=== PATIENT | female | born 1980 | race Caucasian/White ===

== ENCOUNTER 2024-03-08 00:08 | Emergency (ER) | payer OTHER, SELFPAY ==
[2024-03-08 00:11] VITALS: BP 215/103
--- NOTE | 2024-03-08 00:21 | ED.GENMED ---
History of Present Illness
<Yenifer Jiménez COMPLIANCE REVIEW SPECIALIST - Last Filed: 03/12/24 15:58>
General
Chief Complaint: Abdominal Pain
Source: patient
Exam Limitations: none
Time Seen by Provider: 03/08/24 00:19
Nursing documentation reviewed up to this point in time: agreed with
History of Present Illness
History of Present Illness:
44-year-old female with history of COPD, smokes 2 packs a day, CKD, elevated liver enzymes with hepatomegaly presents for 1 month of left upper quadrant abdominal pain which has gotten worse in the past few days, she states she was crying at home
earlier tonight due to the pain. She states the pain is worse with eating or drinking. She states she has also had nonbloody diarrhea for the past week and she has been taking Imodium. Denies fever or chills. Denies UTI symptoms.
Past History
<Yenifer Jiménez, COMPLIANCE REVIEW SPECIALIST - Last Filed: 03/12/24 15:58>
Past History
ED Past Medical History: Asthma, COPD, GERD and Renal failure
ED Past Surgical History: Cholecystectomy, and Tonsilectomy
Social History
Tobacco: Smoker
Alcohol: Occasional
Drug: None
Personal: Single
Living: with family
Employment: Employed
Family History
Family History: Other (Noncontributory)
Review of Systems
<Yenifer Jiménez, COMPLIANCE REVIEW SPECIALIST - Last Filed: 03/12/24 15:58>
Review of Systems
Allergies reviewed?: Yes
All Other Systems: ROS reviewed and negative except as documented in HPI and ROS
Constitutional: Denies fever
Respiratory: Denies trouble breathing
Cardiac: Denies chest pain
ABD/GI: Reports abdominal pain, nausea and diarrhea; Denies bloody stools or black stools
: Denies dysuria, frequency or difficulty voiding
Musculoskeletal: Reports no symptoms
Skin: Reports no symptoms
Neurological: Reports no symptoms
Phy Exam
<Yenifer Jiménez, COMPLIANCE REVIEW SPECIALIST - Last Filed: 03/12/24 15:58>
Physical Exam
Physical Exam:
GENERAL: Morbidly obese . no acute distress. A&Ox3.
CONSTITUTIONAL: Afebrile.
EYES: PERRL, conjunctivae normal
ENMT: moist mucus membranes, Pharynx nl
RESPIRATORY: Regular respirations, nonlabored, lungs clear.
CARDIOVASCULAR: Regular rate and rhythm, no murmurs, no rubs.
GI: Soft, nontender, normal BS
MUSCULOSKELETAL: Moves with ease. Well perfused.
SKIN: Warm, dry, pink
PSYCH: Normal mood and affect. Well kept, interactive and appropriate
NEUROLOGIC: Awake, alert and oriented. No focal neurological deficits
Course
<Yenifer Jiménez, COMPLIANCE REVIEW SPECIALIST - Last Filed: 03/12/24 15:58>
Orders/Labs/Results
Orders:
Orders
03/08/24 00:17
EKG [Electrocardiogram (*1)] Urgent
Reason for Study: Abdominal Pain
EKG- Treatment ONCE
03/08/24 00:20
CT Abd/pelvis Wo Iv Cont Urgent
Comment: modified due to infiltrated iv per ordering COMPLIANCE REVIEW SPECIALIST
Reason For Exam: LUQ pain
Test Result ONCE
03/08/24 00:33
Doxycycline [Vibramycin] 100 mg PO NOW STA
03/08/24 00:58
Complete Blood Count/With Diff Urgent
Manual Differential Urgent
03/08/24 01:40
Basic Metabolic Panel Urgent
Comment: NO K
HCG, Serum Qualitative Screen Urgent
03/08/24 03:30
Comprehensive Metabolic Panel Routine
Direct Bilirubin Routine
Lipase Routine
03/08/24 03:36
Oxycodone/Acetaminophen [Percocet 5/325] 2 tablet .ROUTE .STK-MED ONE
Abnormal Lab Results
03/08/24 03/08/24 03/08/24
00:58 01:40 03:30
WBC 12.3 H 10^3/uL
(4.8-10.8)
Segmented Neutrophils 37 L %
(42-75)
Band Neutrophils 4 H %
(0-3)
BUN 22 H mg/dl 20 H mg/dl
(7-17) (7-17)
03/08/24 00:58
03/08/24 03:30
Vital Signs
Initial and Last Documented VS:
Initial Vital Signs
Temp Pulse Resp BP Pulse Ox
97.8 F 67 20 215/103 100
03/08/24 00:11 03/08/24 00:11 03/08/24 00:11 03/08/24 00:11 03/08/24 00:11
Last Documented Vital Signs
Temp Pulse Resp BP Pulse Ox
98.3 F 65 24 173/60 93
03/08/24 04:23 03/08/24 04:23 03/08/24 04:23 03/08/24 04:23 03/08/24 04:23
<Edvin Raygoza, DO - Last Filed: 03/08/24 04:39>
Orders/Labs/Results
Orders:
Orders
03/08/24 00:17
EKG [Electrocardiogram (*1)] Urgent
Reason for Study: Abdominal Pain
EKG- Treatment ONCE
03/08/24 00:20
CT Abd/pelvis Wo Iv Cont Urgent
Comment: modified due to infiltrated iv per ordering COMPLIANCE REVIEW SPECIALIST
Reason For Exam: LUQ pain
Test Result ONCE
03/08/24 00:33
Doxycycline [Vibramycin] 100 mg PO NOW STA
03/08/24 00:58
Complete Blood Count/With Diff Urgent
Manual Differential Urgent
03/08/24 01:40
Basic Metabolic Panel Urgent
Comment: NO K
HCG, Serum Qualitative Screen Urgent
03/08/24 03:30
Comprehensive Metabolic Panel Routine
Direct Bilirubin Routine
Lipase Routine
03/08/24 03:36
Oxycodone/Acetaminophen [Percocet 5/325] 2 tablet .ROUTE .STK-MED ONE
Abnormal Lab Results
03/08/24 03/08/24 03/08/24
00:58 01:40 03:30
WBC 12.3 H 10^3/uL
(4.8-10.8)
Segmented Neutrophils 37 L %
(42-75)
Band Neutrophils 4 H %
(0-3)
BUN 22 H mg/dl 20 H mg/dl
(7-17) (7-17)
03/08/24 00:58
03/08/24 03:30
Vital Signs
Initial and Last Documented VS:
Initial Vital Signs
Temp Pulse Resp BP Pulse Ox
97.8 F 67 20 215/103 100
03/08/24 00:11 03/08/24 00:11 03/08/24 00:11 03/08/24 00:11 03/08/24 00:11
Last Documented Vital Signs
Temp Pulse Resp BP Pulse Ox
98.3 F 65 24 173/60 93
03/08/24 04:23 03/08/24 04:23 03/08/24 04:23 03/08/24 04:23 03/08/24 04:23
<Yenifer Jiménez, COMPLIANCE REVIEW SPECIALIST - Last Filed: 03/12/24 15:58>
MDM/Problems Addressed
Differential Diagnosis Includes:
Diverticulitis, colitis, pancreatitis
MDM/Problems Addressed:
44-year-old female with history of COPD, smokes 2 packs a day, CKD, elevated liver enzymes with hepatomegaly presents for 1 month of left upper quadrant abdominal pain which has gotten worse in the past few days, she states she was crying at home
earlier tonight due to the pain. She states the pain is worse with eating or drinking. She states she has also had nonbloody diarrhea for the past week and she has been taking Imodium. Denies fever or chills. Denies UTI symptoms.
Afebrile, NAD\\
Case discussed with Dr. Raygoza who will assume care from this point.
<Yenifer Jiménez, COMPLIANCE REVIEW SPECIALIST - Last Filed: 03/12/24 15:58>
*Critical Care Note
Total Time (30-74mins, 75-104mins- exclusive of procedures): Not Applicable
ED Attending Note
<Yenifer Jiménez, COMPLIANCE REVIEW SPECIALIST - Last Filed: 03/12/24 15:58>
-
Portions of this chart may have been created with voice recognition software.� Occasional wrong word or��sound alike� substitutions may have occurred due to the inherent limitations of voice recognition software.
<Edvin Raygoza, DO - Last Filed: 03/08/24 04:39>
ED Attending Note
Patient seen and examined by attending physician: Yes
I performed the substantive portion of visit, reviewed & personally made and approve the management plan that is documented in note by myself or MAHESH.: Yes
ED Attending Note:
I evaluated the patient at bedside. Although she has a mild leukocytosis, she reports pain in the left upper quadrant with CT imaging that is unremarkable. LFTs and lipase also unremarkable. hCG negative. Given the reported severity of symptoms,
will give a short course of narcotic analgesia however the cause of her symptoms is somewhat unclear.
Discharge Plan
Departure
Patient Disposition: Home (Routine Discharge)
Date of Disposition: 03/08/24
Time of Disposition: 04:37
Patient with high blood pressure during this ER visit?: Yes
Discharge Problem:
Abdominal pain
Instructions: Abdominal Pain
Prescriptions:
No Action
hydrocortisone acetate 25 MG suppository
25 mg [place] BID Qty: 10 0RF
oxycodone-acetaminophen 5 MG/325 MG tablet
1 tab PO Q4HPRN PRN (Reason: pain) Qty: 10 0RF
omeprazole 40 MG capsule,delayed release(DR/EC)
40 mg PO BID
Referrals:
UNKNOWN - PT DOES,NOT KNOW [Unknown Provider] -
Interventions
Interventions:
*Risk Screen - Suicide Last Done: 03/08/24 00:11
*General Assessment Last Done: 03/08/24 00:11
*Neglect/Abuse Screening Last Done: 03/08/24 00:11
ED- Fall Risk Assessment Last Done: 03/08/24 00:40
*ED COVID-19 Vaccine History Last Done: 03/08/24 00:40
*Nursing Disposition Last Done: 03/08/24 04:23
FT-Slwgom-Pwedbkhaem Assessment Last Done: 03/08/24 00:38
Discharge Date and Time
Discharge Date/Time: 03/08/24 04:23
Print Language: COLOMBIAN
[2024-03-08 00:35] VITALS: BP 151/91
[2024-03-08 01:00] VITALS: BP 168/80
[2024-03-08 01:11] LABS: Hematocrit 42.4 % (37.0-47.0); Hemoglobin 14.9 g/dL (12.0-16.0); Red Blood Cell Count 4.93 10^6/uL (4.20-5.40); White Blood Cell Count 12.3 10^3/uL (4.8-10.8)
[2024-03-08 01:12] LABS: Mean Corp Hgb Conc. 35.1 g/dL (33.0-37.0); Mean Corpuscular Hgb 30.2 pg (27.0-31.0); Red Cell Dist. Width 13.5 % (11.5-14.5)
[2024-03-08 03:00] VITALS: BP 155/87
[2024-03-08 03:53] LABS: Mean Platelet Volume 9.8 fL (7.4-10.4); Platelet Count 241 10^3/uL (130-400)
[2024-03-08 04:00] VITALS: BP 173/60
[2024-03-08 04:00] LABS: ALT (SGPT) 23 U/L (0-35); AST (SGOT) 21 U/L (14-36); Albumin 3.9 g/dl (3.5-5.0); Alkaline Phosphatase 63 U/L (38-126); Blood Urea Nitrogen 20 mg/dl (7-17); Calcium 9.2 mg/dl (8.4-10.2); Carbon Dioxide 28 mmol/L (22-30); Chloride 104 mmol/L (98-107); Direct Bilirubin 0.1 mg/dl (0.0-0.4); Glucose 90 mg/dl (70-99); Lipase 148 U/L (23-300); Sodium 140 mmol/L (135-145); Total Bilirubin 0.2 mg/dl (0.2-1.3); Total Protein 6.5 g/dl (6.3-8.2); eGFR > 60.00
--- NOTE | 2024-03-08 04:00 | DOWNTIME ---
There was a [employer] Client Education Counselor Downtime on 03/08/2024 from 0100 to 03/08/2024 at 0350. Downtime documentation of patient's care, including medication administrations, has been reconciled in the electronic record per guidelines. Refer to the
patient's paper chart under the miscellaneous tab to see printed paper medication records and downtime forms.
[2024-03-08 04:02] LABS: Atypical Lymphocytes 5 %; Band Neutrophils 4 % (0-3); Eosinophils 3 % (0-6); Lymphocytes 48 % (20-51); Monocytes 3 % (2-9); Platelets Checked Yes; Segmented Neutrophils 37 % (42-75)
[2024-03-08 04:03] LABS: Normal RBC Morphology Yes; Total Cells Counted 100
[2024-03-08 04:05] LABS: HCG, Serum Qualitative Screen Negative
[2024-03-08 04:07] LABS: Blood Urea Nitrogen 22 mg/dl (7-17); Calcium 9.1 mg/dl (8.4-10.2); Carbon Dioxide 26 mmol/L (22-30); Chloride 105 mmol/L (98-107); Glucose 91 mg/dl (70-99); Sodium 138 mmol/L (135-145); eGFR > 60.00
[2024-03-08 04:23] VITALS: BP 173/60
== END 2024-03-08 04:23 | disposition home or self-care (01) ==
LOC: EMR 00:08
PROVIDERS: Registered Nurse; EMERGENCY PHYSICIAN Emergency Medicine; FAMILY PHYSICIAN Family Medicine
DX: R10.12 Left upper quadrant pain (principal); J44.89 Other specified chronic obstructive pulmonary disease; F17.210 Nicotine dependence, cigarettes, uncomplicated; K21.9 Gastro-esophageal reflux disease without esophagitis; N18.9 Chronic kidney disease, unspecified; Z90.49 Acquired absence of other specified parts of digestive tract
CPT/HCPCS: 99284; 74176; 80048; 80053; 82248; 83690; 84703; 85025; 93005

== ENCOUNTER 2024-09-02 02:52 | Emergency (ER) | payer OTHER, SELFPAY ==
[2024-09-02 02:54] VITALS: BP 188/107
[2024-09-02] MEDS: ZOFRAN ODT (ORALLY DISINTEGRATING) 4 MG PO (04:04)
[2024-09-02] MEDS: NORCO 5/325 2 TABLET PO (04:04)
--- NOTE | 2024-09-02 04:42 | ED.GENMED ---
History of Present Illness
General
Chief Complaint: Skin Problem
Source: patient
Time Seen by Provider: 09/02/24 03:31
History of Present Illness
History of Present Illness:
44-year-old female with a history of MRSA and multiple abscesses presents with abscess to the left proximal posterior lower extremity near the groin. Patient states that started about a week ago with discomfort. She states pain got worse. She
states she has had multiple abscesses x 2 sedated for drainage. The patient does admit that occasionally she has had to be intubated as a result of anesthesia. In fact, she had a collapsed lung 1 time as a result. The patient states she is
fearful of the pain.
Past History
Past History
ED Past Medical History: Asthma, COPD, GERD and Renal failure
ED Past Surgical History: Cholecystectomy, and Tonsilectomy
Social History
Tobacco: Smoker (2 packs/day)
Alcohol: Occasional
Drug: None
Personal: Single
Living: with family
Employment: Employed
Family History
Family History: Other (Noncontributory)
Phy Exam
Physical Exam
Physical Exam:
CONSTITUTIONAL Vital signs reviewed, Patient alert and oriented to person, place and time. Well-appearing. Obese
HEAD atraumatic, normocephalic.
EYES eyelids normal to inspection, Extraocular muscles intact, Conjunctiva normal, Sclera normal.
NECK normal range of motion, Trachea midline, no jugular venous distention.
RESP no respiratory distress
BACK No obvious deformities
UPPER EXTREMITY Gross Range of motion normal, gross motor strength normal
LOWER EXTREMITY Gross range of motion normal, Gross motor strength normal. Fluctuant abscess approximately 3 cm x 2 cm noted to the inner thigh of the left lower extremity. No surrounding cellulitis
NEURO Speech normal, No focal motor deficits include, [place] coma scale 15, Memory normal, Cranial Nerves intact to screening exam.
SKIN Skin warm, dry, and normal in color.
PSYCHIATRIC Patient oriented to person place and time, Normal affect.
Course
Orders/Labs/Results
Orders:
Orders
09/02/24 03:55
Hydrocodone 5/APAP 325 [[place] 5/325] 2 tablet PO NOW STA
Ondansetron Orally Disint [Zofran Odt (Orally Disintegrating)] 4 mg PO NOW STA
Vital Signs
Initial and Last Documented VS:
Initial Vital Signs
Temp Pulse Resp BP Pulse Ox
98.6 F 92 24 188/107 96
09/02/24 02:54 09/02/24 02:54 09/02/24 02:54 09/02/24 02:54 09/02/24 02:54
Last Documented Vital Signs
Temp Pulse Resp BP Pulse Ox
98.6 F 92 24 188/107 96
09/02/24 02:54 09/02/24 02:54 09/02/24 02:54 09/02/24 02:54 09/02/24 02:54
Procedures
Incision/Drainage/Joint Aspiration
Left Thigh:
Anethesia: 1% Lidocaine with Epi, Added Na bicarb to local and other (Topical 'Pain-paresh'.)
Preparation: cleaned with Betadine
Type of procedure: incise
Nature of site: abscess
Description of abscess: less than 3cm
Loculations broken up: Yes
How much fluid was obtained?: large amount
Fluid description: purulent
Treatment: left open for drainage and packed with gauze
MDM/Problems Addressed
MDM/Problems Addressed:
Abscess, MRSA
*Pulse Oximetry
Patient hypoxic: no
*Critical Care Note
Total Time (30-74mins, 75-104mins- exclusive of procedures): Not Applicable
Data Reviewed
Source: patient
Patient Management
Escalation/DeEscalation of care consider admission/obs:
Patient poorly tolerated the incision and drainage however sedation was not an option given her risk factors including obesity and COPD and history of needing intubation. Risks too high for a minor procedure. Good results after incision and
drainage. Packed. Cover with antibiotics and okay for outpatient follow-up
ED Attending Note
-
Portions of this chart may have been created with voice recognition software.� Occasional wrong word or��sound alike� substitutions may have occurred due to the inherent limitations of voice recognition software.
Discharge Plan
Departure
Patient Disposition: Home (Routine Discharge)
Date of Disposition: 09/02/24
Time of Disposition: 04:48
Patient with high blood pressure during this ER visit?: Yes
Discharge Problem:
Abscess
Instructions: BLOOD PRESSURE, Skin Abscess
Prescriptions:
New
sulfamethoxazole-trimethoprim [Bactrim DS] 800-160 mg tablet
1 tab PO BID Qty: 14 0RF
No Action
hydrocortisone acetate 25 MG suppository
25 mg [place] BID Qty: 10 0RF
oxycodone-acetaminophen 5 MG/325 MG tablet
1 tab PO Q4HPRN PRN (Reason: pain) Qty: 10 0RF
omeprazole 40 MG capsule,delayed release(DR/EC)
40 mg PO BID
Referrals:
Rich Bo DO [Family Provider] -
Activity Restrictions/Additional Instructions:
Please apply warm compresses or warm soaks 3 times a day. Please see your doctor in the next 3 days for follow-up and reevaluation. Packing should be removed in the next 48 to 72 hours. Keep wound clean and dry. Return immediately for fevers,
increased redness or pain or any other concerns.
Interventions
Interventions:
*Risk Screen - Suicide Last Done: 09/02/24 03:19
*General Assessment Last Done: 09/02/24 02:54
*Neglect/Abuse Screening Last Done: 09/02/24 04:11
*ED- Fall Risk Assessment Last Done: 09/02/24 04:11
*ED COVID-19 Vaccine History Last Done: 09/02/24 04:11
ED-Skin Assessment Last Done: 09/02/24 04:09
Discharge Date and Time
Print Language: MALAYSIAN
[2024-09-02] MEDS: BACTRIM DS 800 MG/160 MG 1 TABLET PO (05:07)
== END 2024-09-02 05:27 | disposition home or self-care (01) ==
LOC: EMR 02:52
PROVIDERS: EMERGENCY PHYSICIAN Emergency Medicine; FAMILY PHYSICIAN Family Medicine
DX: L02.214 Cutaneous abscess of groin (principal); J44.89 Other specified chronic obstructive pulmonary disease; K21.9 Gastro-esophageal reflux disease without esophagitis; N19 Unspecified kidney failure; F17.210 Nicotine dependence, cigarettes, uncomplicated; Z86.14 Personal history of Methicillin resistant Staphylococcus aureus infection; Z90.49 Acquired absence of other specified parts of digestive tract
CPT/HCPCS: 99283; 10060; 87070; 87147; 87186; 87205

== ENCOUNTER 2024-09-03 03:08 | Emergency (ER) | payer OTHER, SELFPAY ==
[2024-09-03 03:14] VITALS: BP 165/94
[2024-09-03 04:55] VITALS: BMI 53.3
--- NOTE | 2024-09-03 05:13 | ED.GENMED ---
History of Present Illness
<GABY Feldman - Last Filed: 09/03/24 05:19>
General
Chief Complaint: Abdominal Symptoms
Source: patient
Exam Limitations: clinical condition
Time Seen by Provider: 09/03/24 05:03
History of Present Illness
History of Present Illness:
Pt is a 44 yo F with PMH of COPD, MORENA, lung nodules, cervical CA, and skin CA, who presents to the ER c/o dizziness, nausea, and vomiting x 1 day. Patient notes she had an abscess I+D here last night and noticed this afternoon around 1 pm that she
began feeling dizzy as though the room was spinning around her. She says this caused her to become nauseas and vomit. She notes she is still in pain from her procedure. During the exam, she coughs excessively. She says she's had the cough for 2.5
weeks and states she isn't sure if it's turned into a pneumonia. Cough is productive for a clear-yellow sputum. Cough limits examination, patient is only able to get a few words out between coughing fits. She denies fevers, changes in bowel
movements, dyspnea, or other associated symptoms.
Past History
<GABY Feldman - Last Filed: 09/03/24 05:19>
Past History
ED Past Medical History: Asthma, COPD, GERD and Renal failure
ED Past Surgical History: Cholecystectomy, and Tonsilectomy
Social History
Tobacco: Smoker (2 packs/day)
Alcohol: Occasional
Drug: None
Personal: Single
Living: with family
Employment: Employed
Family History
Family History: Other (Noncontributory)
Review of Systems
<GABY Feldman - Last Filed: 09/03/24 05:19>
Review of Systems
All Other Systems: ROS reviewed and negative except as documented in HPI and ROS
Phy Exam
<GABY Feldman - Last Filed: 09/03/24 05:19>
General Physical Exam
General Presentation: mild distress
General age: appears stated age
General Skin: warm and dry
General Habitus: obese
General Mental: alert
Cardiovascular Exam
Cardiovascular Exam: regular rate/rhythm
Heart Sounds: normal
Pulmonary Exam
Pulmonary Exam: generalized wheezing
Cough: hacking cough
Gastrointestinal Exam
Gastrointestinal Exam: normal bowel sounds
Course
<GABY Feldman - Last Filed: 09/03/24 05:19>
Orders/Labs/Results
Orders:
Orders
09/03/24 05:09
Meclizine [Antivert] 25 mg PO NOW STA
Ondansetron Orally Disint [Zofran Odt (Orally Disintegrating)] 4 mg PO NOW STA
09/03/24 05:10
Ipratropium/Albuterol Sulfate [Duoneb] 3 ml INH R NOW STA
09/03/24 05:11
CR Chest - 2 Views Urgent
Comment:
Reason For Exam: cough, SOB
09/03/24 06:04
Hydrocodone 5/APAP 325 [[place] 5/325] 1 tablet PO NOW STA
Prednisone [Deltasone] 50 mg PO NOW STA
Vital Signs
Initial and Last Documented VS:
Initial Vital Signs
Temp Pulse Resp BP Pulse Ox
97.7 F 67 20 165/94 98
09/03/24 03:14 09/03/24 03:14 09/03/24 03:14 09/03/24 03:14 09/03/24 03:14
Last Documented Vital Signs
Temp Pulse Resp BP Pulse Ox
97.5 F 82 20 136/81 99
09/03/24 06:45 09/03/24 06:45 09/03/24 06:45 09/03/24 06:45 09/03/24 06:45
<Tenisha Choi DO - Last Filed: 09/03/24 06:51>
Orders/Labs/Results
Orders:
Orders
09/03/24 05:09
Meclizine [Antivert] 25 mg PO NOW STA
Ondansetron Orally Disint [Zofran Odt (Orally Disintegrating)] 4 mg PO NOW STA
09/03/24 05:10
Ipratropium/Albuterol Sulfate [Duoneb] 3 ml INH R NOW STA
09/03/24 05:11
CR Chest - 2 Views Urgent
Comment:
Reason For Exam: cough, SOB
09/03/24 06:04
Hydrocodone 5/APAP 325 [[place] 5/325] 1 tablet PO NOW STA
Prednisone [Deltasone] 50 mg PO NOW STA
Vital Signs
Initial and Last Documented VS:
Initial Vital Signs
Temp Pulse Resp BP Pulse Ox
97.7 F 67 20 165/94 98
09/03/24 03:14 09/03/24 03:14 09/03/24 03:14 09/03/24 03:14 09/03/24 03:14
Last Documented Vital Signs
Temp Pulse Resp BP Pulse Ox
97.5 F 82 20 136/81 99
09/03/24 06:45 09/03/24 06:45 09/03/24 06:45 09/03/24 06:45 09/03/24 06:45
<Tenisha Choi DO - Last Filed: 09/03/24 06:51>
*Radiology
Radiology exam reviewed: preliminary read by ED provider (Chest x-ray is unremarkable.)
*Pulse Oximetry
Patient hypoxic: no
*Critical Care Note
Total Time (30-74mins, 75-104mins- exclusive of procedures): Not Applicable
ED Attending Note
<GABY Feldman - Last Filed: 09/03/24 05:19>
-
Portions of this chart may have been created with voice recognition software.� Occasional wrong word or��sound alike� substitutions may have occurred due to the inherent limitations of voice recognition software.
<Tenisha Choi DO - Last Filed: 09/03/24 06:51>
ED Attending Note
Patient seen and examined by attending physician: Yes
I performed the substantive portion of visit, reviewed & personally made and approve the management plan that is documented in note by myself or MAHESH.: Yes
ED Attending Note:
This is a 44-year-old obese woman with history of COPD, chronic tobacco abuse, history of MRSA and frequent skin abscesses who was evaluated in this ED yesterday morning with complaints of recurrent left thigh abscess that was incised and drained.
She was started on Bactrim and discharged to home. She was reportedly provided a prescription for Vicodin and Diflucan which she states will be available at her pharmacy at 10 AM.
She admits to chronic cough that has worsened over the past 2-1/2 weeks with occasional gagging and occasional dizziness. She has not had a fever nor chills. Cough is occasionally productive of clear to pearly phlegm. She denies hematemesis.
She has been using her albuterol inhaler twice daily. She had been prescribed Flovent sometime ago but has not returned to her information consultant for quite some time.
She denies chest pain or abdominal pain.
GENERAL: Al 44-year-old obese woman appears older than stated age. Frequent hacking nonproductive cough is noted with occasional brief gagging. Able to speak in full sentences. Pulse ox 98% on room air. Afebrile.
EYE: anicteric
NECK: Supple, nontender, no meningismus, no significant adenopathy.
ENT: oral mucosa is moist. No rhinorrhea.
CARDIAC: Regular rate and rhythm. no murmur.
LUNGS: Mild respiratory distress, coarse expiratory wheezing bilaterally.
ABDOMEN: Rotund, soft, nondistended, without focal tenderness
NEUROLOGICAL: Alert and oriented x3, no focal neuro deficits. Gait is steady.
SKIN: Warm and dry, moderate laurita skin color, no cyanosis, no rash.
MUSCULOSKELETAL: No C/C/E. peripheral pulses are full and equal b/l. 4 x 4 dressing intact over I&D site with packing intact left proximal posterior thigh. There is no erythema. Moderate local tenderness to palpation with a small/1 cm area of
firmness deep within the soft tissue. At this point nothing that needs additional incision and drainage. There is no erythema, no lymphangitis.
PSYCH: Normal and appropriate interaction.
History and exam most consistent with acute exacerbation of COPD. Other consideration is pneumonia. Less likely CHF.
Will give DuoNeb nebulizer.
She is noted to have intermittent paroxysms of cough with intermittent gagging. Must consider pertussis. Prescribed a course of Bactrim yesterday for draining abscess and thus Bactrim should cover potential pertussis.
She is also noted to have intermittent brief dizziness, more so with cough and does not appear vertiginous in nature however will give a dose of Antivert as well as Zofran.
Patient requesting pain medication. Will give a one-time dose of Vicodin.
Will also initiate a course of prednisone.
Will check chest x-ray.
06:00
Marked improvement in cough after nebulizer treatment and improvement in air movement.
Awaiting chest x-ray.
06:20
Chest x-ray is unremarkable. Clear lung reaves. No significant hyperinflation and no evidence of CHF.
Patient has been started on prednisone and recommend she increase her albuterol inhaler to 4 times daily.
Will add LABA/ICS.
Lengthy discussion that she must discontinue cigarettes. Smoking cessation counseling greater than 3 minutes.
Prompt follow-up with PCP for recheck.
Discharge Plan
Departure
Patient Disposition: Home (Routine Discharge)
Date of Disposition: 09/03/24
Time of Disposition: 06:18
Patient with high blood pressure during this ER visit?: Yes
Discharge Problem:
Acute exacerbation of chronic obstructive pulmonary disease, Continuous tobacco abuse
Instructions: Chronic obstructive pulmonary disease (COPD) - Discharge instructions, Quitting smoking - ED discharge instructions, BLOOD PRESSURE
Prescriptions:
New
prednisone 10 mg Tablet
See Rx Instructions .ROUTE .COMPLEX Qty: 45 0RF
Rx Instructions:
Take By Mouth:
50 mg daily x3 days, 40 mg daily x3 days,
30 mg daily x3 days, 20 mg daily x3 days,
10 mg daily x3 days
fluticasone propion-salmeterol [Wixela Inhub] 250-50 mcg/dose blister with device
1 inh inhalation BID Qty: 60 3RF
ondansetron 4 mg tablet,disintegrating
4 mg PO QID PRN (Reason: nausea and vomiting) Qty: 20 0RF
Discontinued
hydrocortisone acetate 25 MG suppository
25 mg [place] BID Qty: 10 0RF
oxycodone-acetaminophen 5 MG/325 MG tablet
1 tab PO Q4HPRN PRN (Reason: pain) Qty: 10 0RF
No Action
omeprazole 40 MG capsule,delayed release(DR/EC)
40 mg PO BID
sulfamethoxazole-trimethoprim [Bactrim DS] 800-160 mg tablet
1 tab PO BID Qty: 14 0RF
fluconazole [Diflucan] 100 mg tablet
100 mg PO DAILY PRN (Reason: yeast infection) Qty: 2 0RF
hydrocodone-acetaminophen 5-325 mg tablet
2 tab PO Q6H PRN (Reason: Pain) Qty: 10 0RF
Referrals:
UNKNOWN - PT DOES,NOT KNOW [Family Provider] - Call in 1-3 days for appt
Interventions
Interventions:
*Risk Screen - Suicide Last Done: 09/03/24 03:14
*General Assessment Last Done: 09/03/24 03:14
*Neglect/Abuse Screening Last Done: 09/03/24 03:14
*ED- Fall Risk Assessment Last Done: 09/03/24 03:14
*ED COVID-19 Vaccine History Last Done: 09/03/24 03:14
*Nursing Disposition Last Done: 09/03/24 06:45
PK-Ytsmdd-Nkbjjwuixx Assessment Last Done: 09/03/24 04:55
ED- Cardiac Assessment Last Done: 09/03/24 06:45
ED- Neurological Assessment Last Done: 09/03/24 04:55
ED Swallowing Screen Last Done: 09/03/24 06:45
Discharge Date and Time
Discharge Date/Time: 09/03/24 06:49
Print Language: PORTUGUESE
[2024-09-03] MEDS: ANTIVERT 25 MG PO (05:19)
[2024-09-03] MEDS: ZOFRAN ODT (ORALLY DISINTEGRATING) 4 MG PO (05:19)
[2024-09-03] MEDS: DUONEB 3 ML INH (05:19)
[2024-09-03] MEDS: DELTASONE 50 MG PO (06:18)
[2024-09-03] MEDS: NORCO 5/325 1 TABLET PO (06:18)
[2024-09-03 06:45] VITALS: BP 136/81
== END 2024-09-03 06:49 | disposition home or self-care (01) ==
LOC: EMR 03:08
PROVIDERS: EMERGENCY PHYSICIAN Emergency Medicine
DX: J44.1 Chronic obstructive pulmonary disease with (acute) exacerbation (principal); F17.210 Nicotine dependence, cigarettes, uncomplicated; R42 Dizziness and giddiness; R11.2 Nausea with vomiting, unspecified; G47.33 Obstructive sleep apnea (adult) (pediatric); Z85.41 Personal history of malignant neoplasm of cervix uteri; Z90.49 Acquired absence of other specified parts of digestive tract
CPT/HCPCS: 94640; 99283; 71046

== ENCOUNTER 2024-09-05 22:21 | Emergency (ER) | payer OTHER, SELFPAY ==
[2024-09-05 22:25] VITALS: BP 195/00
--- NOTE | 2024-09-05 23:30 | ED.GENMED ---
History of Present Illness
General
Chief Complaint: Wound Check/Suture Removal
Source: patient
Exam Limitations: none
Time Seen by Provider: 09/05/24 23:04
Nursing documentation reviewed up to this point in time: agreed with
History of Present Illness
History of Present Illness:
This is a 44-year-old female with past medical history of recurrent MRSA infections, COPD, recurrent abscesses, asthma, cervical cancer, who presents emergency department today with concerns of a wound reevaluation and abscess packing removal.
Patient reports that she was seen in our emergency department 3 days ago because of a large abscess she had on her left proximal posterior lower extremity near the groin area. She had incision and drainage done in the emergency department and she
had wound packing placed. She presents today to have the wound packing removed. Patient states that she has followed with infectious disease doctor in the past for recurrent MRSA infections however she currently does not follow with anyone for
this and currently does not follow with a general surgeon or a shade matcher. Patient reports that the wound has been draining a lot and she has been changing the dressings frequently. She reports that she has some irritation at the skin where the
packing is. She denies any fevers or chills, surrounding redness, spreading of the redness, nausea or vomiting. Patient is currently on a course of Bactrim.
Past History
Past History
ED Past Medical History: Asthma, COPD, GERD and Renal failure
ED Past Surgical History: Cholecystectomy, and Tonsilectomy
Social History
Tobacco: Smoker (2 packs/day)
Alcohol: Occasional
Drug: None
Personal: Single
Living: with family
Employment: Employed
Family History
Family History: Other (Noncontributory)
Review of Systems
Review of Systems
All Other Systems: ROS reviewed and negative except as documented in HPI and ROS
Phy Exam
Physical Exam
Physical Exam:
General: Patient is well appearing and in no acute distress; non-toxic
Skin: Warm and dry, 2.5 cm incision noted with packing in place, small area of irritation noted to the edge of the wound where packing was in contact with the skin but no surrounding erythema/cellulitis
Head: Normocephalic, atraumatic
Eyes: Sclera non-icteric. EOMs intact.
Cardiac: Regular rate
Pulm: Normal respiratory effort
Neuro: CN II-XII intact, no focal neurologic deficits.
Psychiatric: Appropriate mood and affect.
Course
Orders/Labs/Results
Orders:
Orders
09/05/24 23:42
Dibucaine [Nupercainal 1% Ointment] See Dose Instructions TOPICAL NOW STA
09/06/24 00:03
Vital Signs- Treatment ONCE
Frequency: Once
09/06/24 01:00
Flush (0.9% Sodium Chloride) [Flush (Nss)] See Dose Instructions IV PER PROTOCOL
Vital Signs
Initial and Last Documented VS:
Initial Vital Signs
Temp Pulse Resp BP Pulse Ox
98 F 75 18 195/00 97
09/05/24 22:25 09/05/24 22:25 09/05/24 22:25 09/05/24 22:25 09/05/24 22:25
Last Documented Vital Signs
Temp Pulse Resp BP Pulse Ox
98 F 62 20 165/92 98
09/05/24 22:25 09/06/24 00:27 09/06/24 00:27 09/06/24 00:27 09/06/24 00:27
MDM/Problems Addressed
Differential Diagnosis Includes:
abscess packing removal
MDM/Problems Addressed:
This is a 44-year-old female with past medical history of recurrent MRSA infections, COPD, recurrent abscesses, asthma, cervical cancer, who presents emergency department today with concerns of a wound reevaluation and abscess packing removal. She
has followed with general surgery and infectious disease in the past for these wounds and recurrent MRSA infections. On exam, her skin is warm and dry, and there is a 2.5 cm incision noted with packing in place, small area of irritation noted to the
edge of the wound where packing was in contact with the skin but no surrounding erythema/cellulitis. Suspect the discomfort patient was feeling was from packing. Packing removed bacitracin ointment applied dressing applied. Patient requesting zofran
prescription as bactrim has been making her nauseous. Patient is also requesting Hibiclens was to use on other parts of her body to help control MRSA colonization. Prescription sent.
Highly suspect hidradenitis suppurativa in this patient as she has had recurrent abscess in the axilla, groin, buttocks, regions in addition she has scarring in certain areas of the skin and band like contractures. Strongly recommended evaluation by
shade matcher. Patient sable for discharge.
Chronic conditions affecting care:
asthma, COPD
*Pulse Oximetry
Patient hypoxic: no
*Critical Care Note
Total Time (30-74mins, 75-104mins- exclusive of procedures): Not Applicable
Data Reviewed
Review of Other/Old Records Reveals: Records (Reviewed ER physician augmentation from 09/03/2024 patient seen for COPD exacerbation, reviewed ER physician documentation from 09/04/2023 where patient had her abscess incised and drained)
Source: patient and records
ED Attending Note
-
Portions of this chart may have been created with voice recognition software.� Occasional wrong word or��sound alike� substitutions may have occurred due to the inherent limitations of voice recognition software.
Discharge Plan
Departure
Patient Disposition: Home (Routine Discharge)
Date of Disposition: 09/06/24
Time of Disposition: 00:27
Patient with high blood pressure during this ER visit?: Yes
Condition: Good
Discharge Problem:
Abscess packing removal
Instructions: Hidradenitis suppurativa, Wound Care (DC), BLOOD PRESSURE
Prescriptions:
New
chlorhexidine gluconate [Antiseptic Skin Clnsr(chlorhe)] 4 % liquid
1 applic topical ONCE Qty: 3800 0RF
ondansetron 4 mg tablet,disintegrating
4 mg PO Q4H PRN (Reason: nausea and vomiting) Qty: 10 0RF
No Action
omeprazole 40 MG capsule,delayed release(DR/EC)
40 mg PO BID
sulfamethoxazole-trimethoprim [Bactrim DS] 800-160 mg tablet
1 tab PO BID Qty: 14 0RF
fluconazole [Diflucan] 100 mg tablet
100 mg PO DAILY PRN (Reason: yeast infection) Qty: 2 0RF
hydrocodone-acetaminophen 5-325 mg tablet
2 tab PO Q6H PRN (Reason: Pain) Qty: 10 0RF
prednisone 10 mg Tablet
See Rx Instructions .ROUTE .COMPLEX Qty: 45 0RF
Rx Instructions:
Take By Mouth:
50 mg daily x3 days, 40 mg daily x3 days,
30 mg daily x3 days, 20 mg daily x3 days,
10 mg daily x3 days
fluticasone propion-salmeterol [Wixela Inhub] 250-50 mcg/dose blister with device
1 inh inhalation BID Qty: 60 3RF
ondansetron 4 mg tablet,disintegrating
4 mg PO QID PRN (Reason: nausea and vomiting) Qty: 20 0RF
Referrals:
Rich Bo DO [Family Provider] -
Kendrick Quintero MD [Active] - Call in 1-3 days for appt
[facility] [[facility]] - Call in 1-3 days for appt
Activity Restrictions/Additional Instructions:
PLEASE CALL DR. QUINTERO'S OFFICE ([facility]) OR A [facility] WITHIN YOUR NETWORK FOR FOLLOW UP.
Please continue to do warm compresses and warm soaks 3 times a day.
Please follow up with the wound care center.
Continue taking the bactrim.
PLEASE RETURN TO THE ER SHOULD YOU EXPERIENCE SURROUNDING REDNESS TO THE WOUND, FEVERS OR CHILLS, NAUSEA OR VOMITING, CHEST PAIN, SHORTNESS OF BREATH, OR ANY OTHER SIGNS OR SYMPTOMS WORRISOME TO YOU.
Interventions
Interventions:
*Risk Screen - Suicide Last Done: 09/05/24 22:25
*General Assessment Last Done: 09/05/24 23:07
*Neglect/Abuse Screening Last Done: 09/05/24 22:25
*ED COVID-19 Vaccine History Last Done: 09/05/24 23:07
*Nursing Disposition Last Done: 09/06/24 00:29
ED-Skin Assessment Last Done: 09/05/24 23:07
Discharge Date and Time
Discharge Date/Time: 09/06/24 00:31
Print Language: OCCITAN
[2024-09-06 00:27] VITALS: BP 165/92
== END 2024-09-06 00:31 | disposition home or self-care (01) ==
LOC: EMR 22:21
PROVIDERS: EMERGENCY PHYSICIAN Student in an Organized Health Care Education/Training Program; FAMILY PHYSICIAN Family Medicine
DX: Z48.01 Encounter for change or removal of surgical wound dressing (principal); R11.0 Nausea; J44.89 Other specified chronic obstructive pulmonary disease; F17.210 Nicotine dependence, cigarettes, uncomplicated; Z86.14 Personal history of Methicillin resistant Staphylococcus aureus infection
CPT/HCPCS: 99283